=== PATIENT | male | born 1990 | race Caucasian/White ===

== ENCOUNTER 2016-12-05 12:44 | Emergency (ER) | payer SELFPAY ==
[~2016-12-05] VITALS: Ht 165.1 cm; Wt 62.0 kg
[2016-12-05] MEDS ORDERED: VISCOUS LIDOCAINE 2% 15 ML UDC PO STA (14:31)
[2016-12-05] MEDS ORDERED: ONDANSETRON HCL 4MG/2ML VIAL IV STA (14:31)
[2016-12-05] MEDS ORDERED: MAGNESIUM/ALUMINUM HYDROXIDE/SIMETHICONE 30ML UDC PO STA (14:31)
[2016-12-05] MEDS ORDERED: DICYCLOMINE 10 MG/5 ML ORAL SYR PO STA (14:31)
[2016-12-05 14:57] LABS: BASOPHILS % 0.6 % (0.0-2.0); EOSINOPHILS % 1.6 % (0.0-5.0); HEMATOCRIT. 43.2 % (42.0-52.0); MEAN PLATELET VOLUME 7.9 fl (7.4-10.4); MONOCYTES % 6.1 % (2.0-8.0); NEUTROPHILS % 69.7 % (40.0-76.0); PLATELET 197 x1000/uL (130-400); RED BLOOD CELL COUNT 5.15 mill/uL (4.7-6.1); RED CELL DISTRIBUTION WIDTH 12.9 % (11.6-14.6)
[2016-12-05 15:06] LABS: D-DIMER < 0.19 mg/L FEU (<0.50); PROTHROMBIN TIME 10.7 sec (9.4-11.6)
[2016-12-05 15:10] LABS: CARBON DIOXIDE 29 mEq/L (21-32); CHLORIDE 104 mEq/L (98-107)
[2016-12-05 15:30] VITALS: BP 126/82
[2016-12-05] MEDS ORDERED: KETOROLAC 30MG/ML VIAL IV ONE (15:30)
== END 2016-12-05 15:42 | disposition home or self-care (01) ==
LOC: ER 14:18
DX: R07.9 Chest pain, unspecified (principal); F17.200 Nicotine dependence, unspecified, uncomplicated
CPT/HCPCS: 36415; 71010; 80053; 85025; 85379; 85610; 93005; 99285; Z7610